=== PATIENT | female | born 1980 | race Caucasian/White ===

== ENCOUNTER 2024-05-17 17:04 | Emergency (ER) | payer OTHER ==
[~2024-05-17] VITALS: Ht 144.8 cm; Wt 77.1 kg
--- NOTE | 2024-05-17 17:07 | NUR ---
jefe from home, for intentional overdose "Snorted approximately 59mg of ativan". Connected to the monitor and pulse ox, kept comfortable, will continue plan of care.
--- NOTE | 2024-05-17 17:22 | NUR ---
called poison control ([facility]) and recommended to monitor x [address] hrs [address] Vila aware and notified.
[2024-05-17 17:37] LABS: BASOPHILS % (AUTO) 0.4 % (0.0-2.0); EOSINOPHILS % (AUTO) 0.3 % (0.0-6.0); HEMATOCRIT 40 % (33-45); HEMOGLOBIN 13.5 g/dL (11.5-14.8); LYMPHOCYTES # (AUTO) 1.5 K/uL (0.8-4.8); LYMPHOCYTES % (AUTO) 19.6 % (20.0-44.0); MEAN CORPUSCULAR HEMOGLOBIN 31 PG (26.0-33.0); MEAN CORPUSCULAR HGB CONC 34 g/dl (31.0-36.0); MEAN CORPUSCULAR VOLUME 91 fL (82-100); MONOCYTES # (AUTO) 0.3 K/uL (0.1-1.30); NEUTROPHILS # (AUTO) 5.6 K/uL (1.8-8.9); NEUTROPHILS % (AUTO) 75.7 % (43.0-81.0); PLATELET COUNT (AUTO) 363 K/uL (150-450); RED BLOOD CELL COUNT(AUTO) 4.37 MIL/uL (4.0-5.2); RED CELL DISTRIBUTION WIDTH 13.3 % (11.5-15.0); WHITE BLOOD COUNT (AUTO) 7.4 K/uL (4.3-11.0)
[2024-05-17 17:38] LABS: AMPHETAMINE, URINE NEGATIVE (NEGATIVE); BARBITURATE, URINE NEGATIVE (NEGATIVE); COCCAINE, URINE NEGATIVE (NEGATIVE); OPIATE, URINE NEGATIVE (NEGATIVE); PHENCYCLIDINE SCREEN,URINE NEGATIVE (NEGATIVE)
[2024-05-17 17:39] LABS: APPEARANCE,URINE CLEAR (CLEAR); BILIRUBIN,URINE NEGATIVE (NEGATIVE); BLOOD, URINE 3+ Ery/uL (NEGATIVE); COLOR,URINE YELLOW (YELLOW); KETONES,URINE NEGATIVE (NEGATIVE); LEUKOCYTE ESTERASE ,URINE NEGATIVE (NEGATIVE); NITRITE, URINE NEGATIVE (NEGATIVE); PROTEIN,URINE NEGATIVE (NEGATIVE); UGLUCOSE NEGATIVE (NEGATIVE); UROBILINOGEN,URINE 0.2 EU/dL (0.2)
[2024-05-17 17:40] LABS: CALCIUM, SERUM 9.7 mg/dL (8.5-10.1); CARBON DIOXIDE 28 mmol/L (21-32); CHLORIDE 104 mmol/L (98-107); CREATININE 0.9 mg/dL (0.6-1.3); GLUCOSE 104 mg/dL (74-106); SODIUM SERUM 136 mmol/L (136-145); UREA NITROGEN, BLOOD 13 mg/dL (7-18)
[2024-05-17 17:40] LABS: BENZODIAZEPINE, URINE POSITIVE (NEGATIVE); CANNABINOID, URINE POSITIVE (NEGATIVE)
[2024-05-17] MEDS: IV NS 0.9% 1,000 ML BAG IV ONE (17:40)
[2024-05-17 17:46] LABS: ACETAMINOPHEN 0 ug/ml (10-30); ALANINE AMINOTRANSFERASE 30 U/L (12-78); ALBUMIN 3.9 g/dL (3.4-5.0); ALCOHOL, BLOOD < 3 mg/dL (0-10); ALKALINE PHOSPHATASE 66 U/L (46-116); ASPARTATE AMINOTRANSFERASE 22 U/L (15-37); BILIRUBIN,DIRECT 0.1 mg/dL (0.0-0.2); BILIRUBIN,TOTAL 0.6 mg/dL (0.2-1.0); SALICYLATE 1.5 mg/dL (2.8-20.0); TOTAL PROTEIN, SERUM 8.1 g/dL (6.4-8.2)
--- NOTE | 2024-05-17 17:52 | NUR ---
attempted to call [facility] for evaluation, no response. left voicemail
--- NOTE | 2024-05-17 18:05 | NUR ---
Moriah Mclain ([facility]) [phone]
--- NOTE | 2024-05-17 18:07 | NUR ---
re-attempted to contact [facility]. No answer.
--- NOTE | 2024-05-17 18:14 | NUR ---
received message from Rosette. Per Rosette, she will call back shortly
[2024-05-17 18:16] LABS: ADD URINE CULTURE NO; BACTERIA,URINE Rare /HPF (None Seen); WBC,URINE 0-2 /HPF (0-3)
[2024-05-17 18:17] LABS: MUCUS,URINE Few /LPF (None Seen)
[2024-05-17 19:43] LABS: PREGNANCY TEST URINE QUAL NEGATIVE (NEGATIVE)
--- NOTE | 2024-05-17 20:07 | NUR ---
Re-attempted to contact [facility]. No answer, left voicemail.
[2024-05-17] MEDS: QUETIAPINE FUMARATE 25 MG TABLET PO STA (20:24)
[2024-05-17] MEDS ORDERED: QUETIAPINE FUMARATE 25 MG TABLET ONE (20:29)
--- NOTE | 2024-05-17 21:17 | NUR ---
ROOSEV[facility]T AT BEDSIDE
[2024-05-17] MEDS ORDERED: HALOPERIDOL LACTATE INJ 5 MG/ML VIAL ONE (21:31)
[2024-05-17] MEDS ORDERED: diphenhydrAMINE HCL 50 MG/ML VIAL ONE (21:31)
[2024-05-17] MEDS: HALOPERIDOL LACTATE INJ 5 MG/ML VIAL IM ONE (21:36)
[2024-05-17] MEDS: diphenhydrAMINE HCL 50 MG/ML VIAL IM ONE (21:36)
--- NOTE | 2024-05-17 22:55 | NUR ---
DARLEEN FROM POISON CONTROL CALLED AND RECOMMENDS 12 LEAD EKG, IF PATIENT IS AGITATED WES WITH BENZODIAZIPINES, NO ANTI PSYCHOTIC MEDS., NO BENADRYL, MONITOR V/S AND MENTAL STATUS MD MADE AWARE.
[2024-05-18] MEDS ORDERED: LAMO150T6 PO (06:05)
[2024-05-18] MEDS ORDERED: QUET50TA PO (06:05)
[2024-05-18] MEDS ORDERED: BUPR1FIL3 SL (06:05)
[2024-05-18] MEDS ORDERED: SUMA100T16 PO (06:05)
[2024-05-18] MEDS ORDERED: PROC10TA13 PO (06:05)
[2024-05-18] MEDS ORDERED: [UNRECOGNIZED DRUG - CODE] PO (06:05)
[2024-05-18] MEDS ORDERED: MAGN200T5 PO (06:05)
[2024-05-18] MEDS ORDERED: LAMO100T17 PO (06:05)
[2024-05-18] MEDS ORDERED: OLANZAPINE 5 MG TABLET ONE (09:12)
[2024-05-18] MEDS: OLANZAPINE ZYDIS 5 MG TAB.RAPDIS PO ONE (09:17)
[2024-05-18] MEDS ORDERED: LORAZEPAM INJ 2 MG/ML VIAL ONE ×3 (12:55→22:33)
[2024-05-18] MEDS: LORAZEPAM INJ 2 MG/ML VIAL IV ONE ×3 (12:59→22:30)
--- NOTE | 2024-05-18 16:53 | NUR ---
PER [facility] ASKING FOR AN ECG ON THE PATIENT. DR JACKSON MADE AWARE.
--- NOTE | 2024-05-18 19:19 | NUR ---
report given to nurse Pinon for samantha
[2024-05-18] MEDS ORDERED: QUETIAPINE FUMARATE 100 MG TABLET ONE (21:29)
[2024-05-18] MEDS: QUETIAPINE FUMARATE 100 MG TABLET PO SCH (21:36)
[2024-05-18] MEDS: LamoTRIgine 100 MG TABLET PO SCH (21:47)
--- NOTE | 2024-05-18 22:18 | NUR ---
DR BELLO AT BEDSIDE
[2024-05-18] MEDS: LamoTRIgine 100 MG TABLET ONE (22:22)
--- NOTE | 2024-05-18 23:57 | NUR ---
SEEN BY [facility] WITH NOTES - "Clinician re-evaluated patient and patient reports no more active suicide ideation. patient agreed to voluntary placement. patient's hold will be broken and clinicals will be sent to [facility] for possible admission. patient will also be seen by Staff psychiatrist Dr. Church for further medication support disposition. if patient is not able to be admitted to [facility]. patient will be discharged at which time patient and mom will travel to [place] to seek treatment. due to [place] being patient's home resident"
[2024-05-19] MEDS ORDERED: ONDANSETRON 4 MG TAB.RAPDIS ONE (00:42)
[2024-05-19] MEDS ORDERED: HALOPERIDOL LACTATE INJ 5 MG/ML VIAL ONE (00:43)
[2024-05-19] MEDS: HALOPERIDOL LACTATE INJ 5 MG/ML VIAL IM ONE (00:44)
[2024-05-19] MEDS: ONDANSETRON 4 MG TAB.RAPDIS SL ONE (00:45)
--- NOTE | 2024-05-19 08:45 | NUR ---
THE PATIENT IS SERVED BREAKFAST. DENIES PAIN. IN ROOM AIR AND DENIES SOB. RESPIRATION REGULAR AND UNLABORED. DENIES SI/HI.
[2024-05-19] MEDS ORDERED: QUETIAPINE FUMARATE 100 MG TABLET PO PRN (11:30)
[2024-05-19] MEDS ORDERED: LORAZEPAM 1 MG TABLET PO PRN (11:30)
--- NOTE | 2024-05-19 12:08 | NUR ---
Facilty Contact: Patient accepted to [facility] Room 114A Doctor Ash Nurse to Nurse [phone] (call in 15mins per intake) Geoffrey Phillips arranges transportation Addendum: 05/19/24 at [address] [place] [address] [id number] [address] [id number] ([phone])
--- NOTE | 2024-05-19 12:11 | NUR ---
CALLED [facility] FOR TRANSPORT ETA 60 MINS PER KALE.
[2024-05-19] MEDS ORDERED: LORAZEPAM 1 MG TABLET ONE (12:12)
--- NOTE | 2024-05-19 12:19 | NUR ---
ATIVAN [address] BALLESTEROS AWARE.
--- NOTE | 2024-05-19 12:28 | NUR ---
Report given to nurse Yas GUEVARA from [facility] for samantha
[2024-05-19 13:00] VITALS: BP 128/64; TEMP 97.7; O2SAT 98
[2024-05-19] MEDS ORDERED: ACETAMINOPHEN ES 500 MG TABLET ONE (13:05)
[2024-05-19] MEDS: ACETAMINOPHEN ES 500 MG TABLET PO ONE (13:07)
--- NOTE | 2024-05-19 13:41 | NUR ---
REPORT GIVEN TO [facility] FOR TRANSFER
[2024-05-19] MEDS ORDERED: DULOXETINE HCL 20 MG CAPSULE.DR PO SCH (17:00)
== END 2024-05-19 13:45 ==
LOC: ER 17:04
DX: T42.4X2A Poisoning by benzodiazepines, intentional self-harm, initial encounter (principal); R45.851 Suicidal ideations; G89.29 Other chronic pain; F33.3 Major depressive disorder, recurrent, severe with psychotic symptoms; R00.0 Tachycardia, unspecified; F13.20 Sedative, hypnotic or anxiolytic dependence, uncomplicated; R45.1 Restlessness and agitation; Z20.822 Contact with and (suspected) exposure to COVID-19; Y92.89 Other specified places as the place of occurrence of the external cause
CPT/HCPCS: 99291; 96372 ×3; 96361; 93005; 85025; 80048; 80076; 84703; 81001; 36415; 87426; 80143; 80320; 80307; 98960 ×3; 96374; 96376 ×2; J1200; J1630 ×2; J7030; J2060 ×3; Q0162; G0480